=== PATIENT | male | born 1960 | race African-American/Black ===

== ENCOUNTER 2018-08-08 02:30 | Inpatient (IN) | payer BC ==
--- NOTE | 2018-08-08 03:03 | EDPHYS ---
Physician Documentation [facility] Name: Erasmo Vargas Age: 58 yrs Sex: Male : 1960 Arrival Date: 08/08/2018 Time: 02:33 Bed 19 Private MD: ED Physician Pankaj Joe HPI: 08/08 02:56 This 58 yrs old Black Male presents to ER via Unassigned with complaints of Abdominal josep Pain, Epigastric Pain. 02:56 The patient presents with abdominal pain in the epigastric area, in the upper abdomen. josep Onset: The symptoms/episode began/occurred 3 day(s) ago. The symptoms do not radiate. Associated signs and symptoms: none. The symptoms are described as constant, crampy. Modifying factors: The symptoms are alleviated by nothing, the symptoms are aggravated by breathing deeply, food. Severity of pain: At its worst the pain was moderate in the emergency department the pain has improved mildly. Historical: - Allergies: 02:59 No Known Allergies; ak1 - Home Meds: 02:59 Norvasc 10 mg Oral tab 1 tab once daily [Active]; ak1 - PMHx: 02:59 Hypertension; ak1 - PSHx: 02:59 None; ak1 - Immunization history:: Flu vaccine is not up to date. It has been more than one year since last vaccine. - Social history:: Smoking status: Patient/guardian denies using tobacco. - Ebola Screening: : No symptoms or risks identified at this time. - Family history:: not pertinent. ROS: 02:56 Constitutional: Negative for fever, chills, and weight loss, Eyes: Negative for injury, josep pain, redness, and discharge, ENT: Negative for injury, pain, and discharge, Neck: Negative for injury, pain, and swelling, Cardiovascular: Negative for chest pain, palpitations, and edema, Respiratory: Negative for shortness of breath, cough, wheezing, and pleuritic chest pain, Back: Negative for injury and pain, : Negative for injury, bleeding, discharge, and swelling, MS/Extremity: Negative for injury and deformity, Skin: Negative for injury, rash, and discoloration, Neuro: Negative for headache, weakness, numbness, tingling, and seizure, Psych: Negative for depression, anxiety, suicide ideation, homicidal ideation, and hallucinations, Allergy/Immunology: Negative for hives, rash, and allergies, Endocrine: Negative for neck swelling, polydipsia, polyuria, polyphagia, and marked weight changes, Hematologic/Lymphatic: Negative for swollen nodes, abnormal bleeding, and unusual bruising. 02:56 Abdomen/GI: Positive for abdominal pain, of the epigastric area and right upper quadrant. 03:00 Abdomen/GI: Positive for josep Exam: 02:56 Constitutional: This is a well developed, well nourished patient who is awake, alert, josep and in no acute distress. Head/Face: Normocephalic, atraumatic. Eyes: Pupils equal round and reactive to light, extra-ocular motions intact. Lids and lashes normal. Conjunctiva and sclera are non-icteric and not injected. Cornea within normal limits. Periorbital areas with no swelling, redness, or edema. ENT: Nares patent. No nasal discharge, no septal abnormalities noted. Tympanic membranes are normal and external auditory canals are clear. Oropharynx with no redness, swelling, or masses, exudates, or evidence of obstruction, uvula midline. Mucous membranes moist. Neck: Trachea midline, no thyromegaly or masses palpated, and no cervical lymphadenopathy. Supple, full range of motion without nuchal rigidity, or vertebral point tenderness. No Meningismus. Chest/axilla: Normal chest wall appearance and motion. Nontender with no deformity. No lesions are appreciated. Cardiovascular: Regular rate and rhythm with a normal S1 and S2. No gallops, murmurs, or rubs. Normal PMI, no JVD. No pulse deficits. Respiratory: Lungs have equal breath sounds bilaterally, clear to auscultation and percussion. No rales, rhonchi or wheezes noted. No increased work of breathing, no retractions or nasal flaring. Back: No spinal tenderness. No costovertebral tenderness. Full range of motion. Male : Normal genitalia with no discharge or lesions. Skin: Warm, dry with normal turgor. Normal color with no rashes, no lesions, and no evidence of cellulitis. MS/ Extremity: Pulses equal, no cyanosis. Neurovascular intact. Full, normal range of motion. Neuro: Awake and alert, GCS 15, oriented to person, place, time, and situation. Cranial nerves II-XII grossly intact. Motor strength 5/5 in all extremities. Sensory grossly intact. Cerebellar exam normal. Normal gait. Psych: Awake, alert, with orientation to person, place and time. Behavior, mood, and affect are within normal limits. 02:56 Abdomen/GI: Inspection: abdomen appears normal, Bowel sounds: normal, Palpation: mild abdominal tenderness, Liver: no appreciated palpable abnormalities, Hernia: not appreciated. Vital Signs: 02:59 BP 147 / 89; Pulse 100; Resp 18; Temp 98.6(O); Pulse Ox 98% on R/A; Weight 92.99 kg ak1 (R); Height 5 ft. 9 in. (175.26 cm) (R); Pain 8/10; 02:59 Body Mass Index 30.27 (92.99 kg, 175.26 cm) ak1 MDM: 02:46 Patient medically screened. [facility] 03:01 Data reviewed: vital signs, nurses notes, lab test result(s), EKG, radiologic studies. [facility] 08/08 02:55 Order name: Basic Metabolic Panel; Complete Time: 04:04 [facility] 08/08 02:55 Order name: CBC with Diff; Complete Time: 04:04 [facility] 08/08 02:55 Order name: Creatinine for Radiology; Complete Time: 04:04 [facility] 08/08 02:55 Order name: Hepatic Function; Complete Time: 04:04 [facility] 08/08 02:55 Order name: Lipase; Complete Time: 04:04 [facility] 08/08 02:55 Order name: IV Saline Lock; Complete Time: 03:04 [facility] 08/08 02:55 Order name: Labs collected and sent; Complete Time: 03:04 [facility] Administered Medications: 03:00 Drug: Pepcid 20 mg Route: IVP; Site: left antecubital; ea 03:05 Drug: NS 0.9% with KCl 20 mEq/L 1000 ml Route: IV; Rate: 125 ml/hr; Site: left ea antecubital; 04:05 Follow up: Response: No adverse reaction; IV Status: Infusion continued upon admission ea 03:10 Drug: Zofran 4 mg Route: IVP; Site: left antecubital; ea 03:12 Drug: NS 0.9% 500 ml Route: IV; Rate: bolus; Site: left antecubital; ea 03:45 Follow up: Response: No adverse reaction; IV Status: Completed infusion; IV Intake: ea 500ml 03:12 Drug: fentaNYL (PF) 50 mcg Route: IVP; Site: left antecubital; ea 03:15 Drug: Zosyn 3.375 grams Route: IVPB; Infused Over: 60 mins; Site: left antecubital; ea 04:15 Not Given (Other Intervention Used; ordered in Fliiby): Potassium Chloride 20 mEq IV bb at per protocol once; administer over 1-2 hours Disposition: 08/08/18 03:02 Hospitalization ordered by Manohar Morse for Observation. Preliminary diagnosis are Abdominal tenderness, Cholecystitis, Cholelithiasis, Hypokalemia. - Bed requested for Telemetry/MedSurg (observation). - Status is Observation. bb - Condition is Stable. - Problem is new. - Symptoms have improved. UTI on Admission? No Signatures: Dispatcher [employer] EDMS Lesly Mooer RN RN mw Anderson, Corey, MD MD cha Ballard, Brenda RN RN Gabbie Bean RN Shalini Sharma RN RN ea Corrections: (The following items were deleted from the chart) 03:13 03:02 Hospitalization Ordered by Manohar Morse MD for Observation. Preliminary mw diagnosis is Abdominal tenderness; Cholecystitis; Cholelithiasis. Bed requested for Telemetry/MedSurg (observation). Status is Observation. Condition is Stable. Problem is new. Symptoms have improved. UTI on Admission? No. josep 04:05 03:13 08/08/2018 03:02 Hospitalization Ordered by Manohar Morse MD for Observation. josep Preliminary diagnosis is Abdominal tenderness; Cholecystitis; Cholelithiasis. Bed requested for Telemetry/MedSurg (observation). Status is Observation. Condition is Stable. Problem is new. Symptoms have improved. UTI on Admission? No. margaret 04:37 04:05 08/08/2018 03:02 Hospitalization Ordered by Manohar Morse MD for Observation. bb Preliminary diagnosis is Abdominal tenderness; Cholecystitis; Cholelithiasis; Hypokalemia. Bed requested for Telemetry/MedSurg (observation). Status is Observation. Condition is Stable. Problem is new. Symptoms have improved. UTI on Admission? No. josep
--- NOTE | 2018-08-08 03:03 | ER ---
Nurse's Notes [facility] Name: Erasmo Vargas Age: 58 yrs Sex: Male : 1960 Arrival Date: 08/08/2018 Time: 02:33 Bed 19 Private MD: Diagnosis: Abdominal tenderness;Cholecystitis;Cholelithiasis;Hypokalemia Presentation: 08/08 02:55 Presenting complaint: Patient states: epigastric pain since Monday. pt scheduled for sx ak1 [address] Morse. pt scheduled for preop at 0730. pt c/o nausea denies vomiting, c/o increased pain. pt brought preop lab work and EKG with him to ER. Transition of care: patient was not received from another setting of care. Onset of symptoms was August 06, 2018. Risk Assessment: Do you want to hurt yourself or someone else? Patient reports no desire to harm self or others. Initial Sepsis Screen: Does the patient meet any 2 criteria? No. Patient's initial sepsis screen is negative. Does the patient have a suspected source of infection? No. Patient's initial sepsis screen is negative. Care prior to arrival: None. 02:55 Method Of Arrival: Ambulatory ak1 02:55 Acuity: MARC 3 ak1 Triage Assessment: 02:59 General: Appears in no apparent distress. Behavior is calm, cooperative. Pain: ak1 Complains of pain in right upper quadrant and epigastric area. EENT: No signs and/or symptoms were reported regarding the EENT system. Neuro: No deficits noted. Cardiovascular: No deficits noted. Respiratory: No deficits noted. GI: Abdomen is flat, non-distended, Reports upper abdominal pain, nausea, Patient currently denies vomiting. : No signs and/or symptoms were reported regarding the genitourinary system. Derm: No signs and/or symptoms reported regarding the dermatologic system. Musculoskeletal: No signs and/or symptoms reported regarding the musculoskeletal system. Historical: - Allergies: 02:59 No Known Allergies; ak1 - Home Meds: 02:59 Norvasc 10 mg Oral tab 1 tab once daily [Active]; ak1 - PMHx: 02:59 Hypertension; ak1 - PSHx: 02:59 None; ak1 - Immunization history:: Flu vaccine is not up to date. It has been more than one year since last vaccine. - Social history:: Smoking status: Patient/guardian denies using tobacco. - Ebola Screening: : No symptoms or risks identified at this time. - Family history:: not pertinent. Screenin:01 Abuse screen: Denies threats or abuse. Denies injuries from another. Nutritional ak1 screening: No deficits noted. Tuberculosis screening: No symptoms or risk factors identified. Fall Risk None identified. Assessment: 03:02 GI: Bowel sounds present X 4 quads. Abd is soft Abdomen is tender to palpation in ak1 epigastric area and right upper quadrant. 03:02 Reassessment: Patient appears in no apparent distress at this time. No changes from ak1 previously documented assessment. Patient and/or family updated on plan of care and expected duration. Pain level reassessed. Patient is alert, oriented x 3, equal unlabored respirations, skin warm/dry/pink. see triage assessment. 03:58 Reassessment: report called to Iveth TORRES for room 427. bb Vital Signs: 02:59 BP 147 / 89; Pulse 100; Resp 18; Temp 98.6(O); Pulse Ox 98% on R/A; Weight 92.99 kg ak1 (R); Height 5 ft. 9 in. (175.26 cm) (R); Pain 8/10; 02:59 Body Mass Index 30.27 (92.99 kg, 175.26 cm) ak1 ED Course: 02:33 Patient arrived in ED. ag3 02:46 Pankaj Joe MD is Attending Physician. josep 02:53 EKG done, by ED staff, reviewed by Pankaj Joe MD. ag4 02:55 Gabbie Mendoza, RN is Primary Nurse. ak1 02:57 Triage completed. ak1 02:59 Arm band placed on Patient placed in an exam room, on a stretcher, on pulse oximetry, ak1 Patient notified of wait time. 03:01 Manohar Morse MD is Hospitalizing Provider. [facility] 03:01 No provider procedures requiring assistance completed. ak1 03:01 Patient has correct armband on for positive identification. Placed in gown. Bed in low ak1 position. Call light in reach. Side rails up X 1. Pulse ox on. NIBP on. Door closed. Lights dimmed. 03:03 Inserted saline lock: 20 gauge in left antecubital area, using aseptic technique. ak1 ,using aseptic technique. placed by Shalini Hicks RN Blood collected. 03:59 Patient admitted, IV remains in place. bb Administered Medications: 03:00 Drug: Pepcid 20 mg Route: IVP; Site: left antecubital; ea 03:05 Drug: NS 0.9% with KCl 20 mEq/L 1000 ml Route: IV; Rate: 125 ml/hr; Site: left ea antecubital; 04:05 Follow up: Response: No adverse reaction; IV Status: Infusion continued upon admission ea 03:10 Drug: Zofran 4 mg Route: IVP; Site: left antecubital; ea 03:12 Drug: NS 0.9% 500 ml Route: IV; Rate: bolus; Site: left antecubital; ea 03:45 Follow up: Response: No adverse reaction; IV Status: Completed infusion; IV Intake: ea 500ml 03:12 Drug: fentaNYL (PF) 50 mcg Route: IVP; Site: left antecubital; ea 03:15 Drug: Zosyn 3.375 grams Route: IVPB; Infused Over: 60 mins; Site: left antecubital; ea 04:15 Not Given (Other Intervention Used; ordered in Retrieve): Potassium Chloride 20 mEq IV bb at per protocol once; administer over 1-2 hours Intake: 03:45 IV: 500ml; Total: 500ml. ea Outcome: 03:02 Decision to Hospitalize by Provider. josep 03:16 Instructed on the need for admit. ea 03:59 Admitted to Tele room 427, Report called to Iveth akhtar 03:59 Condition: stable 04:37 Patient left the ED. bb Signatures: Pankaj Joe MD MD cha Ballard, Brenda RN RN Gabbie Bean RN RN Shalini Baez RN RN ea Gomez, Alice ag3 Guzman, Adan ag4
[2018-08-08] MEDS ORDERED: ONDANSETRON 4 MG/2 ML VIAL ONE (03:10)
[2018-08-08] MEDS ORDERED: FENTANYL CITR 100 MCG/2 ML ONE ×3 (03:10→13:38)
[2018-08-08] MEDS ORDERED: NA CHLORIDE 0.9% 500 ML ONE (03:11)
[2018-08-08] MEDS ORDERED: PIPER/TAZO/NS 3.375gm 3.375 GM/100 ML BAG ONE (03:11)
[2018-08-08] MEDS ORDERED: NS KCL 20MEQ 1,000 ML IV ONE (03:11)
[2018-08-08] MEDS ORDERED: FAMOTIDINE 20 MG/2 ML VIAL IV ONE (03:11)
[2018-08-08 03:25] LABS: Absolute Lymphocytes (CBC) 1.2 K/uL (0.7-4.9); Absolute Monocytes 0.8 K/uL (0.1-1.3); Absolute Neutrophil 7.1 K/uL (1.8-8.0); Basophils % 0.2 % (0-1.3); Eosinophils % 0.6 % (0-4.4); Hematocrit 43.8 % (39.6-49.0); Lymphocytes % 13.4 % (15.3-44.8); MPV 9.9 fL (7.6-11.3); Monocytes % 8.4 % (3.3-12.3); RBC Red Blood Cell Count 4.75 M/uL (4.33-5.43)
[2018-08-08 03:42] LABS: Albumin 4.1 g/dL (3.4-5.0); Bilirubin Direct 0.2 mg/dL (0-0.2); Bilirubin Total 0.7 mg/dL (0.2-1.0); Potassium 3.1 mmol/L (3.5-5.1); Protein, Total 8.2 g/dL (6.4-8.2)
[2018-08-08] MEDS ORDERED: FENTANYL CITR 100 MCG/2 ML IV PRN (04:17)
[2018-08-08] MEDS ORDERED: ACETAMINOPHEN 500 MG TAB PO PRN (04:17)
[2018-08-08] MEDS ORDERED: NS KCL 20MEQ 20 MEQ/1,000 ML BAG IV SCH (04:17)
[2018-08-08] MEDS ORDERED: ONDANSETRON 4 MG/2 ML VIAL IV PRN (04:17)
[2018-08-08] MEDS ORDERED: KCL 20 MEQ/100 mL IVPB 20 MEQ/100 ML BAG IV SCH (05:00)
[2018-08-08] MEDS ORDERED: PIPER/TAZO/NS 3.375gm 3.375 GM/100 ML BAG IVPB SCH (06:00)
[2018-08-08] MEDS ORDERED: MORPHINE 4 MG/ML SYR IV ONE (07:00)
--- NOTE | 2018-08-08 07:12 | EKG ---
Test Date: 2018-08-08 Test Time: 02:48:19 Senior Telecommunications Specialist: [id number] MEASUREMENT RESULTS: Intervals: Rate: 96 CO: 192 QRSD: 96 QT: 352 QTc: 444 [place]: P: 46 CO: 192 QRS: 26 T: 6 INTERPRETIVE STATEMENTS: Normal sinus rhythm Normal ECG No previous ECG available for comparison Electronically Signed On 08-08-18 07:12:21 MANAGING PRINCIPAL by Glenroy Loo
[2018-08-08] MEDS: FAMOTIDINE 20 MG/2 ML VIAL IV SCH ×2 (09:38→20:58)
--- NOTE | 2018-08-08 09:46 | P.HP ---
Date of Service: 08/08/18 PC: This 58-year-old male presents emergency room with severe right upper quadrant abdominal pain for diagnosis and treatment. HPC: Patient is well known to me, he was actually scheduled have an elective procedure done this week. During the last week however he has been having increasing pain and discomfort located in the right upper quadrant. 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 No chest pain or palpitations. No urinary complaints O/E awake alert uncomfortable HEENT: Not icteric Chest: Air entry equal bilaterally ABD: Tender in the right upper quadrant LOCO: Intact DATA: White cell count normal with a left shift IMPRESSION: Cholecystitis with cholelithiasis PLAN: I will take him to the operating room for laparoscopic possible open cholecystectomy with intraoperative cholangiogram. The risks of this procedure have been discussed. The possibility of bleeding, infection, injury to bile ducts blood vessels and intestines has been described. The possible need for an open and/or further surgeries and procedures has been discussed. He understands and wants us to proceed.
[2018-08-08] MEDS: PIPER/TAZO/NS 3.375gm 3.375 GM/100 ML BAG IVPB SCH ×2 (10:01→16:51)
[2018-08-08] MEDS ORDERED: Ringers Lactate 1,000 ML IV ONE ×2 (10:02→13:25)
[2018-08-08] MEDS ORDERED: BUPIVACAINE 0.5% PF 10 ML VIAL ONE (10:48)
[2018-08-08] MEDS ORDERED: PROPOFOL 200 MG/20 ML VIAL IV ONE (10:56)
[2018-08-08] MEDS ORDERED: LIDOCAINE 2% MPF 5 ML VIAL ONE (10:57)
[2018-08-08] MEDS ORDERED: MIDAZOLAM HCL 2 MG/2 ML INJ ONE (10:57)
[2018-08-08] MEDS ORDERED: GLYCOPYRROLATE 0.2 MG/ML SYR ONE ×2 (10:58→13:30)
[2018-08-08] MEDS ORDERED: ROCURONIUM 50 MG/5 ML VIAL IV ONE (10:58)
[2018-08-08] MEDS ORDERED: EPHEDRINE SULF 50 MG/10 ML SYR ONE (12:48)
[2018-08-08] MEDS ORDERED: NEOSTIGMINE 1 MG/ML -5 ML SYRINGE ONE (13:25)
--- NOTE | 2018-08-08 14:51 | P.OP ---
Preoperative diagnosis: Cholecystitis with cholelithiasis, biliary colic Postoperative diagnosis: The same with hydrops of the gallbladder and stone impacted in the cystic d Primary procedure: Laparoscopic cholecystectomy Secondary procedure: Cholangiogram Anesthesia: General Estimated blood loss: Less than 30 cc Specimen: And gallbladder and contents Operative Technique: The patient brought the operating room and placed supine on the table. After the induction of adequate general endotracheal anesthesia, the area of the abdomen was prepped with a DuraPrep solution, and he was draped in usual aseptic manner. A subumbilical incision was made. This brought down through the skin and subcutaneous tissue. The Visiport was now used to enter the peritoneal cavity and created pneumoperitoneum to approximately 12 mm of mercury. Under direct vision a tap block of the anterior abdominal wall was done using 0.25% Marcaine. 2 5 mm trocars were now placed to the right lateral side of the abdomen and another in the upper midline with the patient in reverse Trendelenburg and rolled to the left were able to visualize right upper quadrant. We could see a markedly distended and turgid gallbladder covered with omentum in the right upper quadrant. The cement was reduced back down into the lower portion of the abdomen. Due to the tenseness of the gallbladder was necessary to aspirate the contents. We i obtained some clear bile consistent with hydrops of the gallbladder. At this point, a grasper was placed on the fundus of the gallbladder. It was elevated up over the liver. This revealed an enormously dilated gallbladder. There were marked amount adhesions between that and the transverse colon and omentum. These were taken down using blunt sharp dissection. The Araceli's pouch was identified. Applying lateral traction we were able to finally dissect down and expose the cystic duct. The cystic duct was noted be dilated. A stone could be palpated in the actual cystic duct itself. We were finally able to milk this back into the towards the gallbladder. At this point a silk ligature was placed between the gallbladder and the cystic ducts in an effort to keep stones from continue to fall down into the cystic duct itself. An opening was made into the cystic duct. Initially to obtain a cholangiogram were unsuccessful due to the stones that were impacted. We were finally able to milk back included the cystic duct and the stones. A cholangiogram demonstrated good flow condyle contrast into the duodenum. Catheter was now removed. Clips were placed on the distal portion of the cystic duct. Due to the amount of edema it was necessary to convert to 2 chromic ties to secure the cystic duct. As we began our gentle dissection we could see there was a structure most likely the cystic artery that however it swept out and continued up it was quite dilated in size. We pain fully dissected this out along of [place] ensure that it only entered into the gallbladder. This turned out to be the cystic artery and some chronically dilated lymphatics. These were then clipped and divided. Initially with our dissection we had started down by Araceli's pouch. A until we had isolated the artery and these other structures we came in a retrograde manner to safely dissect down and try to identify the very distorted anatomy that was in our operative field. At this point having dissected the gallbladder off of the liver completely. We found that this was indeed the artery and hence we were able to safely ligated with clips and divided. This pus was now placed into an Endo-Catch. We brought it specimen up to the umbilicus. Due to its size and lack of compressibility. It was necessary cut the fascia. This was done to allow the gallbladder to start to enter into the subcutaneous tissue. We widened our subumbilical incision were finally able to extract this large specimen from the abdominal cavity. Attention was now turned back up towards the right upper quadrant. The area was irrigated with a copious amount of saline solution until the effluent was clear. The fluid was aspirated from the peritoneal cavity. 0.25% Marcaine was now instilled into the peritoneal cavity. The pneumoperitoneum was collapsed, the trocars removed after having approximated the umbilical trocar site and our its subsequent incision was approximately 6 absorbable sutures of 020 absorbable suture. [place] were then applied to the skin. At the end of the procedure he was in a stable condition when sent to the recovery room. Needle sponge instrument count were correct. No drains were placed. 1 specimen was sent for histopathology. Complications: None Transferred to: Recovery Room Condition: Good
--- NOTE | 2018-08-08 15:00 | RAD REPORT ---
EXAM DESCRIPTION: RAD - Cholangiogram Oper-Xray Or - 08/08/2018 2:54 pm CLINICAL HISTORY: LAP CHRISTINE WITH IOC COMPARISON: No comparisons FINDINGS: Intraoperative cholangiogram fluoroscopic images are submitted. Cystic duct injection is n oted performed by operating surgeon. There is no evidence of retained common bile duct stone. Common bile duct appears normal in caliber. Total fluoro time: 0.7 minutes. Eight fluoroscopic images are submitted. IMPRESSION: No evidence of retained common bile duct stone.
[2018-08-08] MEDS ORDERED: MEPERIDINE HCL 50 MG/ML AMP ONE (15:25)
--- NOTE | 2018-08-08 20:06 | P.PN ---
Date of Service: 08/08/18 S: Patient feels well after surgery. Pain appears to will controlled. However did have some fever and chills earlier this afternoon. O: Has some serosanguineous drainage from umbilicus (irrigating fluid) incision is intact A: Surgically stable, will keep an additional day for further antibiotics. P: Continue antibiotics for another 24 hr. Anticipate discharge on Monday.
[2018-08-08] MEDS: ACETAMINOPHEN 160 MG/5 ML UCUP PO PRN (22:01)
[2018-08-09] MEDS: MORPHINE 4 MG/ML SYR IV PRN ×4 (00:48→21:31)
[2018-08-09] MEDS: PIPER/TAZO/NS 3.375gm 3.375 GM/100 ML BAG IVPB SCH ×3 (00:48→16:53)
[2018-08-09 06:31] LABS: Absolute Monocytes 0.9 K/uL (0.1-1.3); Absolute Neutrophil 5.9 K/uL (1.8-8.0); Basophils % 0.2 % (0-1.3); Eosinophils % 0.6 % (0-4.4); Hematocrit 39.7 % (39.6-49.0); Lymphocytes % 12.6 % (15.3-44.8); MPV 9.4 fL (7.6-11.3); Monocytes % 11.6 % (3.3-12.3)
[2018-08-09] MEDS: FAMOTIDINE 20 MG/2 ML VIAL IV SCH ×2 (08:05→21:30)
[2018-08-09] MEDS ORDERED: SIMETHICONE 80 MG TAB PO PRN (11:21)
[2018-08-09] MEDS ORDERED: SIMETHICONE 40 MG/ 0.6 ML PO PRN (11:49)
[2018-08-09] MEDS ORDERED: MAGNESIUM HYDROXIDE 8% 30 ML PO PRN (16:39)
--- NOTE | 2018-08-09 17:53 | P.CNS ---
Date of Consult: 08/09/18 Reason for Consult: Medical Management Requesting Physician: Manohar Morse Primary Care Provider: None Chief Complaint: Medical management, hypoxia History of Present Illness: 58-year-old male status post cholecystectomy. I was consulted to evaluate hypoxia and medical management. Patient reports that the patient was admitted for cholecystectomy. He was to have the procedure done as an outpatient but continued to have pain admitted by surgery. Cholecystectomy performed. Since that time he he has not been ambulating very well. He has not been using incentives order. Today he was found to be hypoxic. Mild fever noted. Patient currently on IV Zosyn. Patient reports history of hypertension. He denies any tobacco use. Patient currently stable at this time. He denies any significant shortness of breath. Mild cough noted. Allergies No Known Allergies Allergy (Unverified 08/08/18 03:25) Home medications list reviewed: Yes Home Medications: Amlodipine Besylate 10 mg PO DAILY 08/08/18 - Past Medical/Surgical History Diabetic: No -: HTN -: Cholecystectomy Psychosocial/ Personal History: Patient is . He has 5 children. 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[employer] - Family History Father Medical History: Hypertension, Cancer Mother Medical History: Hypertension, Cancer Notes: dementia - Social History Smoking Status: Never smoker Alcohol use: Yes CD- Drugs: No Caffeine use: Yes Place of Residence: Home Review of Systems General: As per HPI Eyes: Unremarkable ENT: Unremarkable Respiratory: Shortness of Breath, As per HPI Cardiovascular: Unremarkable Gastrointestinal: As per HPI Genitourinary: Unremarkable Musculoskeletal: Unremarkable Integumentary: Unremarkable Neurological: Unremarkable Lymphatics: Unremarkable Physical Examination Temp Pulse Resp BP Pulse Ox 100.2 F 102 H 20 133/74 93 08/09/18 12:00 08/09/18 12:00 08/09/18 12:00 08/09/18 12:00 08/09/18 12:00 General: Alert, In no apparent distress, Oriented x3, Cooperative HEENT: Atraumatic, Normocephalic, Mucous membr. moist/pink Neck: Supple Respiratory: Crackles/rales (To the right base) Cardiovascular: Normal pulses, Regular rate/rhythm Gastrointestinal: Normal bowel sounds, Soft and benign, Non-distended, No tenderness, No masses, No rebound, No guarding, Other (Postop changes noted) Musculoskeletal: No erythema, No tenderness, No warmth Integumentary: No erythema, No warmth, No cyanosis Neurological: Normal speech, Normal strength at 5/5 x4 extr, Normal tone, Normal affect Conclusions/Impression: Impression: Hypoxia likely atelectasis to the right base Status post cholecystectomy Hypertension Hypokalemia Acute renal insufficiency Plan: Patient seen and evaluated. Case discussed at length with surgery. Will obtain PA and lateral chest x-ray to evaluate for underlying pneumonia versus atelectasis. Suspect atelectasis. Patient reports prior chest x-ray before surgery was negative. Encourage ambulation. Encourage incentive spirometer. Patient already on IV Zosyn. Will continue with current medication. Diet to be advanced by surgery. Will continue with SCD. Will obtain CBC and BMP to further assess. Electrolytes to be replaced. Blood pressure stable this time. Will hold his Norvasc. Anticipate possible discharge within the next day. Patient may benefit with pulmonary evaluation as an outpatient. Patient may have underlying sleep apnea. This can be addressed as an outpatient. Await chest x-ray findings. Time Spent Managing Pts care (In Minutes): 55
[2018-08-09] MEDS: POLYVINYL ALCOHOL 1.4% 15 ML EACH EYE SCH ×2 (17:57→21:39)
[2018-08-09 17:59] LABS: Absolute Monocytes 0.8 K/uL (0.1-1.3); Absolute Neutrophil 7.6 K/uL (1.8-8.0); Basophils % 0.4 % (0-1.3); Eosinophils % 0.5 % (0-4.4); Hematocrit 40.1 % (39.6-49.0); Lymphocytes % 10.6 % (15.3-44.8); Monocytes % 8.2 % (3.3-12.3); RBC Red Blood Cell Count 4.25 M/uL (4.33-5.43)
--- NOTE | 2018-08-09 18:08 | P.PN ---
Date of Service: 08/09/18 S: Patient feels somewhat better today. No specific complaints. Upper abdominal pain that he presented with has completely resolved. Now has a subumbilical soreness in feels bloated. Nurse's however report that he is dropping his O2 sats when he is taken off the nasal oxygen. O: Vital signs are stable, lab work was checked within normal limits. Is on Zosyn at the moment. Incisions are clean A: Continues to improve status post laparoscopic cholecystectomy with cholangiogram. I will console the hospitalist regarding his pulmonary status. P: Continue current therapy, SCDs are in place, patient is to ambulate more, has been instructed on the use of his incentive spirometer.
[2018-08-09 18:17] LABS: Magnesium 2.3 mg/dL (1.8-2.4)
[2018-08-09 18:21] LABS: Potassium 2.9 mmol/L (3.5-5.1)
--- NOTE | 2018-08-09 18:30 | RAD REPORT ---
EXAM DESCRIPTION: RAD - Chest Pa And Lat (2 Views) - 08/09/2018 6:20 pm CLINICAL HISTORY: Shortness of breath COMPARISON: None. TECHNIQUE: PA and lateral views of the chest were obtained. FINDINGS: The lungs are significantly underinflated. No diffuse pulmonary edema pattern. No failure or volume overload suspected. Retrocardiac left base opacification in medial right base opacification are probably atelectasis rather than infiltrate. These can be monitored on subsequent imaging. Hea rt size is normal and central vasculature is within normal limits. No pleural effusion or pneumothor ax seen. No acute bony finding noted. No aortic abnormality. Free air is present under the right hemidiaphragm not unexpected given the prior day surgical procedu re. Limited imaging shows prominent colon bowel gas pattern. IMPRESSION: Shallow inspiration film showing evidence for bibasilar opacification. This is probably atelectasis rather than infiltrate. This can be monitored on subsequent imaging. No diffuse pulmonary edema.
[2018-08-09] MEDS ORDERED: KCL 20 MEQ/100 mL IVPB 20 MEQ/100 ML BAG IV SCH (19:00)
[2018-08-09] MEDS: ACETAMINOPHEN 160 MG/5 ML UCUP PO PRN (19:37)
[2018-08-09] MEDS ORDERED: POTASSIUM 25 MEQ EFFERV TAB PO ONE (21:27)
[2018-08-10] MEDS: PIPER/TAZO/NS 3.375gm 3.375 GM/100 ML BAG IVPB SCH ×3 (00:42→17:28)
[2018-08-10] MEDS ORDERED: POTASSIUM 25 MEQ EFFERV TAB PO ONE (04:56)
[2018-08-10] MEDS: MORPHINE 4 MG/ML SYR IV PRN ×2 (05:13→21:55)
[2018-08-10] MEDS: POLYVINYL ALCOHOL 1.4% 15 ML EACH EYE SCH ×4 (09:00→21:00)
[2018-08-10] MEDS: AMLODIPINE 10 MG TAB PO SCH (09:33)
[2018-08-10] MEDS: FAMOTIDINE 20 MG/2 ML VIAL IV SCH ×2 (09:34→21:00)
[2018-08-10] MEDS: HYDROCODONE/APAP 7.5/325 MG TAB PO PRN (13:12)
--- NOTE | 2018-08-10 15:21 | P.PN ---
Subjective Date of Service: 08/10/18 Primary Care Provider: None Chief Complaint: Medical management, hypoxia Subjective: Other (Patient reports improvement. Patient reports that he is trying to get up more and using incentive spirometer.) Physical Examination - Vital Signs Temperature: 99.0 F Blood Pressure: 134/65 Pulse: 93 Respirations: 18 Pulse Ox (%): 96 - Physical Exam General: Alert, In no apparent distress, Oriented x3, Cooperative HEENT: Atraumatic Neck: Supple Respiratory: Clear to auscultation bilaterally, Other (Better air movement bilateral) Cardiovascular: Normal pulses, Regular rate/rhythm Gastrointestinal: Normal bowel sounds, Soft and benign, Non-distended, No masses , No rebound, No guarding Musculoskeletal: No erythema, No tenderness, No warmth Integumentary: No erythema, No warmth, No cyanosis Neurological: Normal speech, Normal strength at 5/5 x4 extr, Normal tone - Studies Laboratory Data (last 24 hrs) 08/10/18 11:57: Potassium 3.3 L 08/10/18 03:58: Potassium 3.0 L 08/09/18 17:48: Sodium 142, Potassium 2.9 L*, BUN 18, Creatinine 1.71 H, Glucose 89, Magnesium 2.3 08/09/18 17:48: WBC 9.5 D, Hgb 13.6, Hct 40.1, Plt Count 165 Medications List Reviewed: Yes Assessment & Plan Discharge Plan: Home Plan to discharge in: 24 Hours Physician Review Additional Text: Impression: Hypoxia likely atelectasis to the right base Status post cholecystectomy Hypertension Hypokalemia Acute renal insufficiency Plan: Patient continues to improve. Chest x-ray yesterday shows Patient continues to improve. Chest x-ray yesterday shows atelectasis. Case discussed at length with surgery yesterday. Will need to wean oxygen off. Will recheck oxygen saturation with and without exertion off oxygen. Will restart blood pressure medication. Encourage incentive spirometer. Encourage ambulation. Continue with SCD. Encouraged oral intake. Electrolytes currently being replaced. Anticipate discharge once patient is able to get off oxygen. Will discuss further with surgery. Will follow along with surgery. Time Spent Managing Pts Care (In Minutes): 55
[2018-08-10] MEDS ORDERED: POTASSIUM CL SA 10 MEQ TAB PO ONE (16:00)
--- NOTE | 2018-08-10 16:25 | P.PN ---
Date of Service: 08/10/18 S: Patient feels somewhat better today. Pain is more manageable. Not as short as breath when he ambulates. Pain appears to be controlled on oral medication. O: Vital signs are stable, chest x-ray last night showed bilateral atelectasis. Better effort on incentive spirometry today. Incisions are clean. A: Patient continues to improve, respiratory effort is better. P: Anticipate discharge tomorrow depending on the degree of shortness of breath that the patient has. I have explained to him this in detail. He understands and is content with this course of treatment.
[2018-08-10] MEDS: POTASSIUM 25 MEQ EFFERV TAB PO SCH (17:27)
[2018-08-11] MEDS: PIPER/TAZO/NS 3.375gm 3.375 GM/100 ML BAG IVPB SCH ×2 (00:49→08:10)
[2018-08-11] MEDS: MORPHINE 4 MG/ML SYR IV PRN (05:00)
[2018-08-11 06:14] LABS: Potassium 3.4 mmol/L (3.5-5.1)
[2018-08-11] MEDS: FAMOTIDINE 20 MG/2 ML VIAL IV SCH (08:10)
[2018-08-11] MEDS: POTASSIUM 25 MEQ EFFERV TAB PO SCH (08:10)
[2018-08-11] MEDS: AMLODIPINE 10 MG TAB PO SCH (08:11)
[2018-08-11] MEDS: POLYVINYL ALCOHOL 1.4% 15 ML EACH EYE SCH (08:11)
--- NOTE | 2018-08-11 12:56 | P.PN ---
Subjective Date of Service: 08/11/18 Primary Care Provider: None Chief Complaint: Medical management, hypoxia Subjective: Improving (Patient doing well this time. Room-air saturations within normal range.) Physical Examination - Vital Signs Temperature: 99.2 F Blood Pressure: 132/63 Pulse: 88 Respirations: 16 Pulse Ox (%): 90 - Physical Exam General: Alert, In no apparent distress, Oriented x3, Cooperative HEENT: Atraumatic Neck: Supple Respiratory: Clear to auscultation bilaterally, Normal air movement Cardiovascular: Normal pulses, Regular rate/rhythm Gastrointestinal: Normal bowel sounds, Soft and benign, Non-distended Musculoskeletal: No tenderness, No warmth Neurological: Normal speech, Normal strength at 5/5 x4 extr, Normal tone, Normal affect - Studies Medications List Reviewed: Yes Assessment & Plan Discharge Plan: Home Plan to discharge in: 24 Hours Physician Review Additional Text: Impression: Hypoxia likely atelectasis to the right base Status post cholecystectomy Hypertension Hypokalemia Acute renal insufficiency Plan: Patient doing well at this time. Patient now with normal room-air saturations. Patient can be discharged today from a medical standpoint. Anticipate discharge today. Surgery will discharge. Patient to continue with increase ambulation and incentive spirometer. Patient may continue with his home medication for hypertension. Recommend for the patient to establish care with a PCP in the area to continue his care. Time Spent Managing Pts Care (In Minutes): 55
[2018-08-11] MEDS: HYDROCODONE/APAP 7.5/325 MG TAB PO PRN (14:54)
== END 2018-08-11 15:30 | disposition home or self-care (01) | DRG 418 ==
LOC: ER 02:30 → ERHOLD 03:24 → 4TH 03:59 → OBSVTOIN 08-10 13:25
PROVIDERS: ADMIT Surgery; ATTEND Surgery
PROC: BF13YZZ Fluoroscopy of Gallbladder and Bile Ducts using Other Contrast (ICD-10-PCS; 2018-08-08)
PROC: 0FT44ZZ Resection of Gallbladder, Percutaneous Endoscopic Approach (ICD-10-PCS; principal; 2018-08-08 10:00)
DX: K80.62 Calculus of gallbladder and bile duct with acute cholecystitis without obstruction (principal); K82.1 Hydrops of gallbladder; J95.89 Other postprocedural complications and disorders of respiratory system, not elsewhere classified; J98.11 Atelectasis; R09.02 Hypoxemia; I10 Essential (primary) hypertension; Y83.8 Other surgical procedures as the cause of abnormal reaction of the patient, or of later complication, without mention of misadventure at the time of the procedure; Y92.230 Patient room in hospital as the place of occurrence of the external cause; E87.6 Hypokalemia; N28.9 Disorder of kidney and ureter, unspecified
CPT/HCPCS: 36415; 71046; 74300; 80048; 80076; 83605; 83690; 83735; 84132; 84145; 85025; 88304; 93005; 96361; 96374; 96375; 99285; G0378; J2175; J2250; J2405; J2543; J2704; J2710; J3010; Q9967